=== PATIENT | male | born 1995 | race African-American/Black ===

== ENCOUNTER 2017-06-20 09:22 | Emergency (ER) | payer MEDICAID ==
[~2017-06-20] VITALS: Ht 182.9 cm; Wt 74.6 kg
[2017-06-20] MEDS ORDERED: ACETAMINOPHEN 325 MG TABLET PO ONE (10:00)
[2017-06-20] MEDS ORDERED: IBUPROFEN 200 MG TABLET PO ONE (10:00)
[2017-06-20] MEDS ORDERED: IBUPROFEN 200 MG TABLET ONE (10:06)
[2017-06-20] MEDS ORDERED: ACETAMINOPHEN 325 MG TABLET ONE (10:07)
[2017-06-20] MEDS ORDERED: LIDOCAINE 1%, 20ML INFIL ONE (11:30)
[2017-06-20 12:33] VITALS: BP 115/64
== END 2017-06-20 12:37 | disposition home or self-care (01) ==
LOC: ED 10:46
DX: R10.9 Unspecified abdominal pain (principal)
CPT/HCPCS: 10060; 99284

== ENCOUNTER 2017-11-12 10:36 | Emergency (ER) | payer MEDICAID ==
[~2017-11-12] VITALS: Ht 185.4 cm; Wt 75.7 kg
[2017-11-12] MEDS ORDERED: DICYCLOMINE 10 MG/ML, 2ML ONE (11:41)
[2017-11-12] MEDS ORDERED: ONDANSETRON ODT 4 MG ONE (11:41)
[2017-11-12 11:59] LABS: MEAN CORPUSCULAR HEMOGLOBIN 28.4 pg (27.5-34.5); MEAN CORPUSCULAR HGB CONC 32.9 g/dL (33.2-36.2); MEAN CORPUSCULAR VOLUME 86.4 fL (81-97); PLATELET COUNT 171 x10^3/uL (130-400); RED BLOOD COUNT 5.48 x10^6/uL (4.38-5.82); RED CELL DISTRIBUTION WIDTH 13.5 % (9.4-14.8)
[2017-11-12 12:11] LABS: ALANINE AMINOTRANSFERASE 21 U/L (12-78); ALBUMIN 3.9 g/dL (3.4-5.0); ANION GAP 9 mmol/L (5-15); CALCIUM 8.5 mg/dL (8.5-10.1); CHLORIDE 106 mmol/L (98-107)
[2017-11-12 12:13] LABS: ALKALINE PHOSPHATASE 63 U/L (45-117); BILIRUBIN,TOTAL 0.5 mg/dL (0.2-1.0); TOTAL PROTEIN 7.4 g/dL (6.4-8.2)
[2017-11-12 12:28] LABS: MD YES
[2017-11-12 12:29] LABS: <PLATELET ESTIMATE> ADEQUATE; <PLT MORPHOLOGY> NORMAL PLT MORPH; <RBC MORPHOLOGY> NORMAL; BAND#(MANUAL) 1.47 x10^3/uL; BANDS%(MANUAL) 6 % (0-7); EOS#(MANUAL) 0.25 x10^3/uL (0.0-0.8); EOS% (MANUAL) 1 % (1-7); LYMPH#(MANUAL) 1.47 x10^3/uL (1-6.1); LYMPHS% (MANUAL) 6 % (22-44); MONOS#(MANUAL) 0.98 x10^3/uL (0.3-2.7); MONOS% (MANUAL) 4 % (2-9); SEG#(MANUAL) 20.34 x10^3/uL (1.8-8); SEGS% (MANUAL) 83 % (42-75)
[2017-11-12] MEDS ORDERED: DICYCLOMINE 10 MG/ML, 2ML IM ONE (13:00)
[2017-11-12] MEDS ORDERED: ONDANSETRON ODT 4 MG PO ONE (13:00)
[2017-11-12] MEDS ORDERED: SODIUM CHLORIDE FLUSH 10ML SYR IVF ONE (13:00)
[2017-11-12] MEDS ORDERED: OMNIPAQUE 350 MG/ML, 100ML BOTTLE ONE (13:23)
[2017-11-12 14:13] VITALS: BP 121/75
== END 2017-11-12 14:40 | disposition home or self-care (01) ==
LOC: ED 14:00
DX: K52.9 Noninfective gastroenteritis and colitis, unspecified (principal); D72.829 Elevated white blood cell count, unspecified
CPT/HCPCS: 36415; 74177; 80053; 83690; 85025; 96372; 99285; J0500; Q0162; Q9967